=== PATIENT | female | born 1960 | race African-American/Black ===

== ENCOUNTER 2023-07-09 10:39 | Emergency (ER) | payer MEDICAID ==
[~2023-07-09] VITALS: Ht 170.2 cm; Wt 59.1 kg
[~2023-07-09 10:39] MED LIST: ASPI81TA39 PO; ATOR40TA71 PO; CEPH-558 PO; METO25XL PO
[2023-07-09 10:49] VITALS: BP 113/66; PULSE 80; RESP 16; TEMP 97.8
[2023-07-09 11:34] LABS: BASOPHILS % (AUTO) 0.5 % (0.0-2.0); HEMATOCRIT 33.6 % (36-46); LYMPHOCYTES % (AUTO) 26.1 % (22.0-44.0); MEAN CORPUSCULAR HEMOGLOBIN 30.2 pg (26.0-34.0); MEAN CORPUSCULAR HGB CONC 32.7 G/dL (31.0-37.0); MEAN CORPUSCULAR VOLUME 92 fL (80-100); MONOCYTES # (AUTO) 0.6 K/uL (0.1-1.0); MONOCYTES % (AUTO) 7.8 % (2.0-9.0); NEUTROPHILS # (AUTO) 4.9 K/uL (1.8-7.7); NEUTROPHILS % (AUTO) 63.6 % (40.0-70.0); PLATELET COUNT (AUTO) 372 K/uL (150-450); RED BLOOD CELL COUNT(AUTO) 3.64 MIL/uL (4.00-5.20); RED CELL DISTRIBUTION WIDTH 13.3 % (11.5-14.5); WHITE BLOOD COUNT (AUTO) 7.7 K/uL (4.5-11.0)
[2023-07-09 11:42] LABS: CALCIUM, TOTAL 8.8 mg/dL (8.8-10.5); CREATININE 2.29 mg/dL (0.60-1.30); POTASSIUM 5.1 mmol/L (3.5-5.1)
== END 2023-07-09 12:00 | disposition home or self-care (01) ==
LOC: EMS 10:55
DX: N18.9 Chronic kidney disease, unspecified (principal); F17.210 Nicotine dependence, cigarettes, uncomplicated
CPT/HCPCS: 80048; 85025; 99283